=== PATIENT | female | born 1965 | race Caucasian/White ===

== ENCOUNTER → 2016-12-18 | Outpatient (CLI) | payer OTHER ==
[~2016-12-18] MED LIST: HYDROCODONE BIT1 T11 PO; LOMOTIL 0.025 M1 TA1 PO; NAPROSYN500 MG PO; ZOFRAN ODT4 MG SL
[2016-12-18 11:09] LABS: BASO # 0.1 10*3/uL (0.0-0.1); BASO % 0.9 % (0.0-1.0); EOS # 0.1 10*3/uL (0.0-0.4); EOS % 1.8 % (1.0-4.0); HEMATOCRIT 41.3 % (37.0-47.0); HEMOGLOBIN 13.9 g/dl (12.0-16.0); LYMPH # 2.6 10*3/uL (1.3-4.4); LYMPH % 37.9 % (27.0-41.0); MEAN CELL VOLUME 88.4 fl (81.0-99.0); MEAN CORPUSCULAR HGB 29.8 pg (27.0-31.0); MEAN CORPUSCULAR HGB CONC 33.7 g/dl (33.0-37.0); MEAN PLATELET VOLUME 10.4 fl (9.6-12.3); MONO # 0.5 10*3/uL (0.1-1.0); NEUT # 3.5 10*3/uL (2.3-7.9); PLATELET COUNT AUTOMATED 315 10*3/uL (130-400); RED BLOOD COUNT 4.67 10*6/uL (4.10-5.10); RED CELL DISTRI WIDTH 12.6 % (0-14.5); WHITE BLOOD COUNT 6.7 10*3/uL (4.8-10.8)
[2016-12-19 08:12] LABS: HEPATITIS C VIRUS ANTIBODY <0.1 s/co (0.0-0.9); RHEUMATOID ARTHRITIS FACTOR 11.7 IU/mL (0.0-13.9)
[2016-12-19 13:05] LABS: ANTI-RNP ANTIBODIES 0.3 AI (0.0-0.9); ANTI-SMITH ANTIBODIES <0.2 AI (0.0-0.9); LYME AB/TOTAL IMMUNOGLOBULINS <0.91 ISR (0.00-0.90)
[2016-12-23 11:07] LABS: HLA-B27 ANTIGEN Negative (.)
== END | disposition home or self-care (01) ==
LOC: LAB 10:36
PROVIDERS: Physician Assistant
DX: M25.50 Pain in unspecified joint (principal)

== ENCOUNTER 2018-07-06 20:14 | Emergency (ER) | payer OTHER ==
[~2018-07-06] VITALS: Ht 172.7 cm; Wt 78.9 kg
[2018-07-06] MEDS ORDERED: CARAFATE1 GM PO (20:52)
[2018-07-06] MEDS ORDERED: ZOFRAN4 MG PO (20:52)
== END 2018-07-06 22:04 | disposition home or self-care (01) ==
LOC: ED 20:14
DX: K29.70 Gastritis, unspecified, without bleeding (principal); Z79.899 Other long term (current) drug therapy; Z90.710 Acquired absence of both cervix and uterus; Z90.49 Acquired absence of other specified parts of digestive tract

== ENCOUNTER → 2018-08-10 | Outpatient (CLI) | payer OTHER ==
[~2018-08-10] MED LIST changes: +CARAFATE1 GM PO; +ZOFRAN4 MG PO
== END | disposition home or self-care (01) ==
LOC: RESCLI 15:20
DX: J32.9 Chronic sinusitis, unspecified (principal); R68.89 Other general symptoms and signs; Z79.899 Other long term (current) drug therapy; Z90.49 Acquired absence of other specified parts of digestive tract; Z90.710 Acquired absence of both cervix and uterus; Z88.8 Allergy status to other drugs, medicaments and biological substances

== ENCOUNTER 2019-05-04 17:52 | Emergency (ER) | payer OTHER ==
[~2019-05-04] VITALS: Ht 172.7 cm; Wt 78.9 kg
== END 2019-05-04 18:27 | disposition home or self-care (01) ==
LOC: ED 17:52
DX: M25.512 Pain in left shoulder (principal); G89.29 Other chronic pain; Z79.899 Other long term (current) drug therapy

== ENCOUNTER 2019-09-30 20:28 | Emergency (ER) | payer OTHER ==
[~2019-09-30] VITALS: Wt 81.6 kg
[2019-09-30] MEDS ORDERED: ROBAXIN-750750 MG PO (22:11)
== END 2019-09-30 22:19 | disposition home or self-care (01) ==
LOC: ED 20:28
DX: M54.40 Lumbago with sciatica, unspecified side (principal); Z88.0 Allergy status to penicillin; Z88.8 Allergy status to other drugs, medicaments and biological substances

== ENCOUNTER → 2020-03-17 | Outpatient (CLI) | payer OTHER ==
[~2020-03-17] MED LIST changes: +ROBAXIN-750750 MG PO
[2020-03-17 14:22] LABS: BASO # 0.1 10*3/uL (0.0-0.1); BASO % 0.8 % (0.0-1.0); EOS # 0.1 10*3/uL (0.0-0.4); EOS % 1.4 % (1.0-4.0); LYMPH # 3.2 10*3/uL (1.3-4.4); LYMPH % 36.1 % (27.0-41.0); MEAN CELL VOLUME 88.8 fl (81.0-99.0); MEAN CORPUSCULAR HGB 28.8 pg (27.0-31.0); MEAN CORPUSCULAR HGB CONC 32.4 g/dl (33.0-37.0); MEAN PLATELET VOLUME 10.5 fl (9.6-12.3); MONO # 0.7 10*3/uL (0.1-1.0); MONO % 7.4 % (3.0-9.0); NEUT # 4.8 10*3/uL (2.3-7.9); NEUT % 53.6 % (47.0-73.0); PLATELET COUNT AUTOMATED 358 10*3/uL (130-400); RED BLOOD COUNT 5.07 10*6/uL (4.10-5.10); RED CELL DISTRI WIDTH 12.8 % (0-14.5); WHITE BLOOD COUNT 8.9 10*3/uL (4.8-10.8)
[2020-03-17 14:38] LABS: ALKALINE PHOSPHATASE 100 U/L (45-117); BUN 16 mg/dl (7-24); CHLORIDE 107 mmol/L (98-107); CHOLESTEROL 242 mg/dL (<200); CREATININE 0.79 mg/dL (0.55-1.02); HDL CHOLESTEROL 42 mg/dl (40-60); LDL CHOLESTEROL 170 mg/dL (9-159); POTASSIUM 4.5 mmol/L (3.5-5.1); SGOT/AST 21 IU/L (3-35); SGPT/ALT 38 U/L (12-78); SODIUM 141 mmol/L (136-145); TOTAL PROTEIN 7.9 gm/dL (6.4-8.2); TRIGLYCERIDES 151 mg/dl (<150); VLDL CHOLESTEROL 30 mg/dL (6-40)
== END | disposition home or self-care (01) ==
LOC: LAB 14:03
PROVIDERS: ATTEND Nurse Practitioner Primary Care
DX: E55.9 Vitamin D deficiency, unspecified (principal); M54.42 Lumbago with sciatica, left side; M79.18 Myalgia, other site; R63.5 Abnormal weight gain; G89.29 Other chronic pain; R29.2 Abnormal reflex

== ENCOUNTER → 2020-03-22 | Outpatient (CLI) | payer OTHER | END | disposition home or self-care (01) | LOC: MAMMO 01:01 | PROVIDERS: ATTEND Nurse Practitioner Primary Care | DX: Z12.31 Encounter for screening mammogram for malignant neoplasm of breast (principal); Z80.3 Family history of malignant neoplasm of breast; Z98.82 Breast implant status ==

== ENCOUNTER → 2020-03-31 | Outpatient (CLI) | payer OTHER | END | disposition home or self-care (01) | LOC: MRI 00:42 | PROVIDERS: ATTEND Nurse Practitioner Primary Care | DX: R20.2 Paresthesia of skin (principal); R20.0 Anesthesia of skin; R32 Unspecified urinary incontinence; M54.42 Lumbago with sciatica, left side; R29.898 Other symptoms and signs involving the musculoskeletal system ==

== ENCOUNTER → 2020-04-20 | Outpatient (CLI) | payer OTHER | END | disposition home or self-care (01) | LOC: CARD 00:21 | PROVIDERS: ATTEND Nurse Practitioner Primary Care | DX: I51.7 Cardiomegaly (principal); I34.1 Nonrheumatic mitral (valve) prolapse ==

== ENCOUNTER → 2020-06-30 | Outpatient (CLI) | payer OTHER ==
[~2020-06-30] MED LIST changes: +'XANAX1 MG PO; +FORTAMET500 MG PO; +PROZAC20 MG PO; +VYVANSE10 MG PO
== END | disposition home or self-care (01) ==
LOC: ORTHO 00:08
PROVIDERS: ATTEND Orthopaedic Surgery
DX: M25.511 Pain in right shoulder (principal)

== ENCOUNTER → 2020-08-14 | Outpatient (CLI) | payer OTHER | END | disposition home or self-care (01) | LOC: MRI 09:59 | PROVIDERS: ATTEND Nurse Practitioner Primary Care | DX: M19.012 Primary osteoarthritis, left shoulder (principal); M47.812 Spondylosis without myelopathy or radiculopathy, cervical region; M89.312 Hypertrophy of bone, left shoulder; M75.91 Shoulder lesion, unspecified, right shoulder; M25.78 Osteophyte, vertebrae; M48.02 Spinal stenosis, cervical region ==

== ENCOUNTER → 2020-08-16 | Outpatient (CLI) | payer OTHER | END | disposition home or self-care (01) | LOC: RAD 01:11 | PROVIDERS: ATTEND Nurse Practitioner Primary Care | DX: M85.851 Other specified disorders of bone density and structure, right thigh (principal); Z78.0 Asymptomatic menopausal state ==

== ENCOUNTER → 2020-09-18 | Outpatient (CLI) | payer OTHER | END | disposition home or self-care (01) | LOC: LAB 11:16 | PROVIDERS: ATTEND Orthopaedic Surgery | DX: M75.42 Impingement syndrome of left shoulder (principal); M19.012 Primary osteoarthritis, left shoulder ==

== ENCOUNTER → 2020-09-18 | Outpatient (CLI) | payer OTHER | END | disposition home or self-care (01) | LOC: COVID19 12:39 | PROVIDERS: ATTEND Orthopaedic Surgery | DX: Z01.812 Encounter for preprocedural laboratory examination (principal); Z20.822 Contact with and (suspected) exposure to COVID-19 ==

== ENCOUNTER → 2020-10-27 | Outpatient (CLI) | payer OTHER | END | disposition home or self-care (01) | LOC: ORTHO 01:58 | PROVIDERS: ATTEND Orthopaedic Surgery | DX: M19.012 Primary osteoarthritis, left shoulder (principal); M75.42 Impingement syndrome of left shoulder ==

== ENCOUNTER 2021-11-30 12:44 | Emergency (ER) | payer OTHER ==
[~2021-11-30] VITALS: Ht 172.7 cm; Wt 74.4 kg
[2021-11-30] MEDS ORDERED: ZOLPIDEM10 MG PO (15:09)
[2021-11-30] MEDS ORDERED: TRAMADOL HCL50 MG PO (15:09)
[2021-11-30] MEDS ORDERED: CALCIUM CARBON600 M5 PO (15:10)
== END 2021-11-30 16:06 | disposition home or self-care (01) ==
LOC: ED 12:44
DX: S99.912A Unspecified injury of left ankle, initial encounter (principal); Z88.0 Allergy status to penicillin; Z90.49 Acquired absence of other specified parts of digestive tract; Z90.710 Acquired absence of both cervix and uterus; Z90.89 Acquired absence of other organs; W10.8XXA Fall (on) (from) other stairs and steps, initial encounter; Y93.89 Activity, other specified; Y92.89 Other specified places as the place of occurrence of the external cause; Y99.8 Other external cause status

== ENCOUNTER → 2022-03-05 | Outpatient (CLI) | payer OTHER ==
[~2022-03-05] MED LIST changes: +CALCIUM CARBON600 M5 PO; +TRAMADOL HCL50 MG PO; +ZOLPIDEM10 MG PO
== END | disposition home or self-care (01) ==
LOC: MAMMO 13:00
PROVIDERS: ATTEND Internal Medicine
DX: R92.1 Mammographic calcification found on diagnostic imaging of breast (principal); Z98.82 Breast implant status; R92.2 Inconclusive mammogram

== ENCOUNTER 2022-08-05 09:42 | Emergency (ER) | payer OTHER ==
[~2022-08-05] VITALS: Wt 77.1 kg
[2022-08-05 11:17] LABS: BASO % 0.3 % (0.0-1.0); EOS % 0.3 % (1.0-4.0); HEMATOCRIT 46.2 % (37.0-47.0); LYMPH # 0.8 10*3/uL (1.3-4.4); LYMPH % 8.3 % (27.0-41.0); MEAN CELL VOLUME 88.3 fl (81.0-99.0); MEAN CORPUSCULAR HGB 29.3 pg (27.0-31.0); MEAN CORPUSCULAR HGB CONC 33.1 g/dl (33.0-37.0); MEAN PLATELET VOLUME 9.7 fl (9.6-12.3); MONO # 0.5 10*3/uL (0.1-1.0); MONO % 4.6 % (3.0-9.0); NEUT # 8.5 10*3/uL (2.3-7.9); PLATELET COUNT AUTOMATED 333 10*3/uL (130-400); RED BLOOD COUNT 5.23 10*6/uL (4.10-5.10); RED CELL DISTRI WIDTH 12.7 % (0-14.5); WHITE BLOOD COUNT 9.9 10*3/uL (4.8-10.8)
[2022-08-05 11:20] LABS: ALKALINE PHOSPHATASE 111 U/L (46-116); BUN 12 mg/dl (9-23); CHLORIDE 102 mmol/L (98-107); LIPASE 36 U/L (12-53); POTASSIUM 3.5 mmol/L (3.4-5.1); SGPT/ALT 45 U/L (10-49); TOTAL PROTEIN 7.5 gm/dL (6.0-8.0)
[2022-08-05 11:23] LABS: ACT PARTIAL THROMBO TIME 24.3 SECONDS (20.0-32.1)
[2022-08-05] MEDS ORDERED: Ondansetron4 MG PO (13:40)
[2022-08-05] MEDS ORDERED: CARAFATE1 G1 PO (13:40)
== END 2022-08-05 13:53 | disposition home or self-care (01) ==
LOC: ED 09:42
PROVIDERS: Emergency Medicine
DX: Z90.49 Acquired absence of other specified parts of digestive tract (principal); K29.70 Gastritis, unspecified, without bleeding; K29.80 Duodenitis without bleeding; Z88.0 Allergy status to penicillin; Z90.89 Acquired absence of other organs; Z90.710 Acquired absence of both cervix and uterus

== ENCOUNTER → 2022-10-15 | Outpatient (CLI) | payer OTHER ==
[~2022-10-15] MED LIST changes: +CARAFATE1 G1 PO; +Ondansetron4 MG PO
== END | disposition home or self-care (01) ==
LOC: MAMMO 00:26
PROVIDERS: ATTEND Nurse Practitioner
DX: D24.2 Benign neoplasm of left breast (principal); Z98.82 Breast implant status

== ENCOUNTER → 2022-12-30 | Outpatient (CLI) | payer OTHER | END | disposition home or self-care (01) | LOC: MRI 01:45 | PROVIDERS: ATTEND Internal Medicine | DX: R29.90 Unspecified symptoms and signs involving the nervous system (principal) ==

== ENCOUNTER → 2023-01-21 | Outpatient (CLI) | payer OTHER | END | disposition home or self-care (01) | LOC: CARD 01:41 | PROVIDERS: ATTEND Internal Medicine Cardiovascular Disease | DX: G45.9 Transient cerebral ischemic attack, unspecified (principal); I31.39 Other pericardial effusion (noninflammatory) ==

== ENCOUNTER → 2023-03-19 | Day surgery (SDC) | payer OTHER ==
[~2023-03-19] VITALS: Ht 172.7 cm; Wt 74.4 kg
[2023-03-19 09:22] VITALS: BP 102/59
[2023-03-19 09:41] VITALS: BP 92/60
[2023-03-19 09:56] VITALS: BP 99/67
[2023-03-19 10:11] VITALS: BP 107/59
== END | disposition home or self-care (01) ==
LOC: SDC 03-14 11:45
PROVIDERS: ATTEND Specialist
DX: H65.493 Other chronic nonsuppurative otitis media, bilateral (principal); E11.9 Type 2 diabetes mellitus without complications; K21.9 Gastro-esophageal reflux disease without esophagitis; K27.9 Peptic ulcer, site unspecified, unspecified as acute or chronic, without hemorrhage or perforation; F41.9 Anxiety disorder, unspecified; F32.A Depression, unspecified; Z79.899 Other long term (current) drug therapy; Z90.49 Acquired absence of other specified parts of digestive tract; Z90.710 Acquired absence of both cervix and uterus; Z98.890 Other specified postprocedural states; Z88.0 Allergy status to penicillin

== ENCOUNTER → 2024-08-18 | Outpatient (CLI) | payer OTHER ==
[2024-08-18 12:32] LABS: BASO # 0.1 10*3/uL (0.0-0.1); EOS # 0.2 10*3/uL (0.0-0.4); EOS % 2.1 % (1.0-4.0); HEMATOCRIT 42.7 % (37.0-47.0); MEAN CELL VOLUME 88.8 fl (81.0-99.0); MEAN CORPUSCULAR HGB 29.7 pg (27.0-31.0); MEAN CORPUSCULAR HGB CONC 33.5 g/dl (33.0-37.0); MEAN PLATELET VOLUME 9.8 fl (9.6-12.3); MONO # 0.6 10*3/uL (0.1-1.0); MONO % 6.3 % (3.0-9.0); NEUT # 4.7 10*3/uL (2.3-7.9); NEUT % 54.1 % (47.0-73.0); PLATELET COUNT AUTOMATED 328 10*3/uL (130-400); RED BLOOD COUNT 4.81 10*6/uL (4.10-5.10); RED CELL DISTRI WIDTH 12.9 % (0-14.5); WHITE BLOOD COUNT 8.7 10*3/uL (4.8-10.8)
[2024-08-18 13:15] LABS: ALKALINE PHOSPHATASE 73 U/L (46-116); BUN 8 mg/dl (9-23); CHLORIDE 104 mmol/L (98-107); CHOLESTEROL 238 mg/dL (<200); LDL CHOLESTEROL 151 mg/dL (9-159); SGPT/ALT 13 U/L (5-49); TOTAL PROTEIN 7.4 gm/dL (6.0-8.0); TRIGLYCERIDES 133 mg/dl (<150)
== END | disposition home or self-care (01) ==
LOC: LAB 12:04
PROVIDERS: ATTEND Nurse Practitioner Primary Care
DX: Z01.810 Encounter for preprocedural cardiovascular examination (principal); R73.03 Prediabetes; E78.2 Mixed hyperlipidemia; D68.8 Other specified coagulation defects

== ENCOUNTER 2024-12-31 19:11 | Emergency (ER) | payer OTHER ==
[~2024-12-31] VITALS: Ht 172.7 cm; Wt 64.9 kg
[2024-12-31] MEDS ORDERED: CAPLYTA42 MG PO (19:38)
== END 2024-12-31 21:40 | disposition home or self-care (01) ==
LOC: ED 19:11
DX: S09.90XA Unspecified injury of head, initial encounter (principal); R42 Dizziness and giddiness; Z88.0 Allergy status to penicillin; Z79.899 Other long term (current) drug therapy; Z90.49 Acquired absence of other specified parts of digestive tract; Z90.89 Acquired absence of other organs; Z90.710 Acquired absence of both cervix and uterus; W18.39XA Other fall on same level, initial encounter; Y93.01 Activity, walking, marching and hiking; Y92.89 Other specified places as the place of occurrence of the external cause; Y99.8 Other external cause status